=== PATIENT | male | born 1995 | race Caucasian/White ===

== ENCOUNTER 2022-08-28 19:27 | Emergency (ER) | payer OTHER ==
[~2022-08-28] VITALS: Ht 193 cm; Wt 74.8 kg
[2022-08-28] MEDS ORDERED: CLONIDINE HCL 0.1 MG/24 HR 1 EA PATCH TOP STA (19:41)
[2022-08-28] MEDS ORDERED: ONDANSETRON HCL INJ 2MG/ML 2ML 2 MG/ML VIAL IV STA (19:41)
[2022-08-28] MEDS ORDERED: SODIUM CHLORIDE 0.9% 1000ML 1,000 ML IV STA ×2 (19:41→20:56)
[2022-08-28 20:13] LABS: BASOPHILS % 0.3 % (0.0-1.0); EOSINOPHILS # (AUTO) 0.1 (0.0-0.4); EOSINOPHILS % 0.8 % (0.0-6.0); HEMATOCRIT 36.7 % (38.2-49.6); HEMOGLOBIN 12.2 g/dL (14.0-18.0); LYMPHOCYTES # (AUTO) 1.7 (1.0-3.2); LYMPHOCYTES % 14.8 % (18.0-39.1); MEAN CORPUSCULAR HEMOGLOBIN 26.9 pg (28-32); MEAN CORPUSCULAR HGB CONC 33.2 g/dL (31-35); MONOCYTES # (AUTO) 0.4 (0.2-0.8); MONOCYTES % 3.7 % (4.4-11.3); NEUTROPHILS # (AUTO) 9.4 (2.1-6.9); NEUTROPHILS % 80.1 % (38.7-80.0); PLATELET COUNT 281 x10e3/uL (140-360); RED BLOOD COUNT 4.53 x10e6/uL (4.3-5.7); RED CELL DISTRIBUTION WIDTH 13.3 % (11.7-14.4)
[2022-08-28 20:25] LABS: ALBUMIN/GLOBULIN RATIO 1.1 (0.8-2.0); ANION GAP 14.1 mmol/L (8-16); CALCIUM 10.1 mg/dL (8.4-10.2); CREATININE, SERUM 0.89 mg/dL (0.72-1.25); POTASSIUM 4.1 mmol/L (3.5-5.1)
[2022-08-28] MEDS ORDERED: ONDANSETRON ODT4 MG PO (21:37)
[2022-08-29 03:52] VITALS: BP 119/62; PULSE 71; RESP 18; TEMP 98.3; O2SAT 99
== END 2022-08-28 23:35 | disposition home or self-care (01) ==
LOC: ER 19:39
DX: R11.0 Nausea (principal); F11.23 Opioid dependence with withdrawal; R94.31 Abnormal electrocardiogram [ECG] [EKG]
CPT/HCPCS: 36415; 80053; 80320; 82550; 84484; 85025; 93005; 99284; J2405; J7030